=== PATIENT | male | born 1970 | race Caucasian/White ===

== ENCOUNTER 2023-12-21 21:00 | Emergency (ER) | payer BC ==
[2023-12-21 21:24] VITALS: TEMP 98.4
--- NOTE | 2023-12-21 21:43 | ED ---
Wound/Laceration HPI - General Source: patient Mode of arrival: ambulatory Limitations: no limitations - History of Present Illness Onset/Timin -: hour(s) Location: other Extremity Location: Left: Hand <Ned Martines - Last Filed: 12/21/23 21:41> <Vishal Saavedra - Last Filed: 12/22/23 03:54> - General Chief Complaint: Wound/Laceration Stated Complaint: R Finger Laceration Time Seen by Provider: 12/21/23 21:14 - History of Present Illness Initial Comments: Quick note: This is a 53-year-old male presenting with left hand injury 3 hours ago. Patient states he accidentally cut the fourth and fifth digits on his left hand with a wood splitter around 6 PM this evening. Patient states he was referred to the [facility]. Patient endorses some concern for tendon damage. States he is not up-to-date with tetanus vaccination. (Ned Martines) 53-year-old male presenting with chief complaint of injury to left hand. Patient accidentally cut his fourth and fifth digits while using a wood splitter around 6 PM tonight. He went to urgent care who sent him to the ER. He is not sure when his last tetanus shot was. He has some limited range of motion. (Vishal Saavedra) - Related Data Previous Rx's Medication Instructions Recorded Cephalexin [Keflex] 500 mg PO Q6HR 7 Days #28 cap 12/21/23 Allergies Allergy/AdvReac Type Severity Reaction Status Date / Time No Known Allergies Allergy Verified 12/21/23 21:24 Review of Systems ROS Other: All systems not noted in ROS Statement are negative. <Ned Martines - Last Filed: 12/21/23 21:41> ROS Other: All systems not noted in ROS Statement are negative. <Vishal Saavedra - Last Filed: 12/22/23 03:54> ROS Statement: Those systems with pertinent positive or pertinent negative responses have been documented in the HPI. Past Medical History Past Medical History: No Reported History History of Any Multi-Drug Resistant Organisms: None Reported Past Surgical History: No Surgical Hx Reported Past Psychological History: No Psychological Hx Reported Smoking Status: Current every day smoker Past Alcohol Use History: Daily Past Drug Use History: None Reported <Ned Martines - Last Filed: 12/21/23 21:41> General Exam Limitations: no limitations <Ned Martines - Last Filed: 12/21/23 21:41> General appearance: alert, in no apparent distress Head exam: Present: atraumatic, normocephalic, normal inspection Eye exam: Present: normal appearance, EOMI Neck exam: Present: normal inspection. Absent: meningismus Respiratory exam: Absent: respiratory distress Cardiovascular Exam: Present: regular rate Extremities exam: Present: other (Deformity to the left fourth and fifth digits) Neurological exam: Present: alert, oriented X3 Psychiatric exam: Present: normal affect, normal mood Expanded Type of lesion: Present: laceration (Fourth and fifth digits) <Vishal Saavedra - Last Filed: 12/22/23 03:54> - General Exam Comments Initial Comments: Visual Physical Exam Vital signs reviewed General: Well-appearing, nontoxic, no acute distress. Head: Normocephalic, atraumatic Eyes: PERRLA, EOMI ENT: Airway patent Chest: Nonlabored breathing Skin: No visual rash, normal skin tone Neuro: Alert and oriented 3 Musculoskeletal: No gross abnormalities. Left fourth and fifth digits are bandaged (Ned Martines) Course Vital Signs 12/21/23 12/22/23 21:21 00:00 Temperature 98.4 F Pulse Rate 70 69 Respiratory 18 16 Rate Blood Pressure 142/83 146/96 O2 Sat by Pulse 98 99 Oximetry Procedures - Laceration Laceration #1 Consent Obtained: verbal consent Indication: laceration Site: hand Size (cm): 4 Description: irregular Depth: involves muscle layer Anesthetic Used: lidocaine 1%, without epi Anesthesia Technique: local infiltration Pre-repair: wound explored, irrigated extensively Type of Sutures: nylon Size of Sutures: 4-0 Number of Sutures: 4 Technique: simple, interrupted Patient Tolerated Procedure: well Laceration #2 Consent Obtained: verbal consent Indication: laceration Site: hand Size (cm): 4 Description: irregular Depth: simple, single layer Anesthetic Used: lidocaine 1%, without epi Anesthesia Technique: local infiltration Pre-repair: wound explored, irrigated extensively Type of Sutures: nylon Size of Sutures: 4-0 Number of Sutures: 4 Technique: simple, interrupted Patient Tolerated Procedure: well <Vishal Saavedra - Last Filed: 10/29/24 03:54> Medical Decision Making <Ned Martines - Last Filed: 12/21/23 21:41> <Vishal Saavedra - Last Filed: 12/22/23 03:54> - Medical Decision Making I completed the quick note portion of this chart signed NOEMÍ Turner (Ned Martines) Was pt. sent in by a medical professional or institution (, [facility], [employer] B[employer] REPAIRER, urgent care, hospital, or [facility]...) When possible be specific @ -Urgent care Did you speak to anyone other than the patient for history (EMS, parent, family, police, friend...)? What history was obtained from this source @ -No Did you review nursing and triage notes (agree or disagree)? Why? @ -I reviewed and agree with nursing and triage notes Were old charts reviewed (outside hosp., previous admission, EMS record, old EKG, old radiological studies, urgent care reports/EKG's, [facility] records)? Report findings @ -No old charts were reviewed Differential Diagnosis (chest pain, altered mental status, abdominal pain women, abdominal pain men, vaginal bleeding, weakness, fever, dyspnea, syncope, headache, dizziness, GI bleed, back pain, seizure, CVA, palpatations, mental health, musculoskeletal)? @ -Differential includes fracture, uncomplicated laceration, tendon rupture, this is not an all-inclusive list EKG interpreted by me (3pts min.). @ -As above X-rays interpreted by me (1pt min.). @ -X-ray shows acute fracture of the fourth digit distal phalanx with anterior dislocation. No intra-articular extension definitively visualized. Soft tissue injury of the fourth and fifth digits. No radiopaque foreign bodies. CT interpreted by me (1pt min.). @ -None done U/S interpreted by me (1pt. min.). @ -None done What testing was considered but not performed or refused? (CT, X-rays, U/S, labs)? Why? @ -None What meds were considered but not given or refused? Why? @ -None Did you discuss the management of the patient with other professionals (professionals i.e. , [facility], AUTO BODY REPAIRER, lab, RT, psych nurse, vp digital marketing social media and crm, lawyer real estate, teacher, sales and service officer, case repairer)? Give summary @ -No Was smoking cessation discussed for >3mins.? @ -No Was critical care preformed (if so, how long)? @ -No Were there social determinants of health that impacted care today? How? (H omelessness, low income, unemployed, alcoholism, drug addiction, transportation, low edu. Level, literacy, decrease access to med. care, assisted, rehab)? @ -No Was there de-escalation of care discussed even if they declined (Discuss DNR or withdrawal of care, Hospice)? DNR status @ -No What co-morbidities impacted this encounter? (DM, HTN, Smoking, COPD, CAD, Cancer, CVA, ARF, Chemo, Hep., AIDS, mental health diagnosis, sleep apnea, morbid obesity)? @ -None Was patient admitted / discharged? Hospital course, mention meds given and route, prescriptions, significant lab abnormalities, going to OR and other pertinent info. @ -53-year-old male presenting with chief complaint of injury to the left hand while using a wood splitter this evening. There are lacerations to the fourth and fifth digits. X-ray shows fracture of the distal phalanx of the fourth digit. Patient is given 1 g of Ancef IM. The wound is thoroughly irrigated and approximated to the best my ability, the wound is surrounded and irregular so it does not fully approximate in some regions. Patient is placed in a bulky dressing and finger splints are applied. Provided with orthopedics for follow- up. Started on Keflex. Discharged. Follow-up with PCP. Report back to ER with any new or worsening symptoms. Discussed return parameters and answered all questions. Patient conveyed verbal understanding and agreed to the plan. I discussed this case in detail with my attending Dr. [place] Undiagnosed new problem with uncertain prognosis? @ -No Drug Therapy requiring intensive monitoring for toxicity (Heparin, Nitro, Insulin, Cardizem)? @ -No Were any procedures done? @ -Laceration repair Diagnosis/symptom? @ -Distal phalanx fracture, laceration Acute, or Chronic, or Acute on Chronic? @ -Acute Uncomplicated (without systemic symptoms) or Complicated (systemic symptoms)? @ -Uncomplicated Side effects of treatment? @ -No Exacerbation, Progression, or Severe Exacerbation? @ -No Poses a threat to life or bodily function? How? (Chest pain, [place], PA, pneumonia, PE, COPD, DKA, ARF, appy, cholecystitis, CVA, Diverticulitis, Homicidal, Suicidal, threat to staff... and all critical care pts) @ -May have compromised use of the left fourth and fifth digits, depending on follow-up (Vishal Saavedra) Disposition <Ned Martines - Last Filed: 12/21/23 21:41> Is patient prescribed a controlled substance at d/c from ED?: No Time of Disposition: 23:46 <Vishal Saavedra - Last Filed: 12/22/23 03:54> Clinical Impression: Laceration, Fracture of distal phalanx of finger Disposition: HOME SELF-CARE Condition: Fair Instructions (If sedation given, give patient instructions): Care For Your Stitches (ED), Laceration (ED), Finger Fracture (ED) Additional Instructions: Follow-up with orthopedics. Report back to ER with any new or worsening symptoms. Take Motrin and Tylenol as needed for pain control. Take medication as prescribed. Keep the finger splinted Prescriptions: Cephalexin [Keflex] 500 mg PO Q6HR 7 Days #28 cap Referrals: None,Stated [Primary Care Provider] - 1-2 days Cherri Cody DO [Doctor of Osteopathic Medicine] - 1-2 days César Lind MD [STAFF PHYSICIAN] - 1-2 days
--- NOTE | 2023-12-21 22:10 | XR ---
EXAMINATION TYPE: XR hand complete LT DATE OF EXAM: 12/21/2023 9:52 PM COMPARISON: Nonea CLINICAL INDICATION: Male, 53 years old with history of Fourth and fifth digit lacerations; [facility] TECHNIQUE: XR hand complete LT Frontal, lateral and oblique views were obtained. FINDINGS/IMPRESSION: Acute fracture of the fourth digit distal phalanx with anterior dislocation. No intra-articular exten jack definitively visualized. Soft tissue injury to the fourth and fifth digits. No radiopaque foreign bodies. [facility], , 12/21/2023 10:07 PM
[2023-12-21] MEDS: LIDOCAINE 1% INJ 10MG/ML (20 ML MDV) SQ ONE (22:39)
[2023-12-21] MEDS: DIPH,PERTUS(ACELL)TETVAC-LF 0.5 ML VIAL IM ONE (22:40)
[2023-12-21] MEDS: ceFAZolin 1,000 MG VIAL (IM USE) IM STA (23:56)
[2023-12-22 00:26] VITALS: BP 146/96; PULSE 69; RESP 16
== END 2023-12-22 | disposition home or self-care (01) ==
LOC: EC 21:00
CPT/HCPCS: 90471; 90715; 96372; 99283